=== PATIENT | male | born 1945 | race Caucasian/White ===

== ENCOUNTER → 2017-07-23 | Outpatient (CLI) | payer OTHER ==
[2017-07-23 21:42] LABS: BLOOD UREA NITROGEN 17 MG/DL (7-18); CREATININE FOR GFR 1.12 MG/DL (0.70-1.30); GLOMERULAR FILTRATION RATE > 60.0 (>42)
== END ==
LOC: M WUC 16:41
PROVIDERS: ATTEND Physician Assistant
DX: M51.36 Other intervertebral disc degeneration, lumbar region (principal)

== ENCOUNTER → 2018-07-23 | Outpatient (REF) | payer OTHER ==
[2018-07-23 16:33] LABS: CREATININE FOR GFR 1.12 MG/DL (0.70-1.30); GLOMERULAR FILTRATION RATE > 60.0 (>42)
[2018-07-23 16:33] LABS: BLOOD UREA NITROGEN 13 MG/DL (7-18)
== END ==
LOC: M LABDRAW1 11:29
DX: M17.11 Unilateral primary osteoarthritis, right knee (principal)

== ENCOUNTER 2019-03-20 19:38 | Emergency (ER) | payer MEDICARE, OTHER ==
[~2019-03-20] VITALS: Ht 182.9 cm; Wt 95.2 kg
[2019-03-20] MEDS ORDERED: ASPIRIN 81 MG CHEW TABLET ONE (19:39)
[2019-03-20] MEDS ORDERED: CLOPIDOGREL 300 MG TAB (PLAVIX) ONE (19:39)
[2019-03-20] MEDS ORDERED: HEPARIN 25,000 UNITS/250 ML D5W BAG (100 UNITS/ML) ONE (19:39)
[2019-03-20] MEDS ORDERED: NITROGLYCERIN 0.4 MG SUBL TABLET ONE (19:39)
[2019-03-20] MEDS ORDERED: TENECTEPLASE 50 MG KIT (TNKase)(J3101) ONE (19:39)
[2019-03-20] MEDS ORDERED: HEPARIN SOD (PORCINE) 5000 UNITS/ML VIAL ONE (19:39)
[2019-03-20] MEDS ORDERED: IBUP-1022 (19:53)
[2019-03-20 20:13] LABS: BASO # 0.1 10^3/uL (0.0-0.2); BASO % 0.2 % (0.0-1.0); EOS % 0.1 % (0.0-3.0); HEMATOCRIT 49.4 % (42.0-52.0); LYMPH # 1.4 10^3/uL (1.5-4.5); MEAN CORPUSCULAR HEMOGLOBIN 29.8 pg (27.0-33.0); MEAN CORPUSCULAR HGB CONC 34.4 g/dl (32.0-36.5); MEAN CORPUSCULAR VOLUME 86.5 fl (80.0-96.0); MONO # 1.5 10^3/uL (0.0-0.8); MONO % 5.6 % (0.0-5.0); NEUTROPHILS # 24.3 10^3/uL (1.8-7.7); NEUTROPHILS % 88.2 % (36.0-66.0); PLATELET COUNT, AUTOMATED 423 10^3/uL (150-450); RED BLOOD COUNT 5.71 10^6/uL (4.30-6.10); WHITE BLOOD COUNT 27.6 10^3/uL (4.0-10.0)
[2019-03-20] MEDS ORDERED: TENECTEPLASE 50 MG KIT (TNKase)(J3101) IV ONE (20:15)
[2019-03-20] MEDS: NITROGLYCERIN 0.4 MG SUBL TABLET SL PRN ×3 (20:15→20:39)
[2019-03-20] MEDS ORDERED: ASPIRIN 81 MG CHEW TABLET PO ONE (20:15)
[2019-03-20] MEDS ORDERED: HEPARIN DRIP 25,000 UNITS in APPROPRIATE DILUENT 1 EA IV SCH (20:18)
[2019-03-20 20:24] LABS: INR 1.2; PROTHROMBIN TIME 15.4 SECONDS (12.1-14.4)
[2019-03-20 20:25] LABS: PARTIAL THROMBOPLASTIN TIME 26.8 SECONDS (25.4-37.6)
[2019-03-20] MEDS ORDERED: CLOPIDOGREL 300 MG TAB (PLAVIX) PO ONE (20:30)
[2019-03-20] MEDS ORDERED: AZITHROMYCIN INJ 500 MG, VIAL MATE ADAPTER 1 EACH in D5W 250 ML IV ONE (20:30)
[2019-03-20] MEDS ORDERED: cefTRIAXone SOD 1 GM in D5W MINI-BAG PLUS 50 ML IV ONE (20:30)
[2019-03-20] MEDS ORDERED: HEPARIN SOD (PORCINE) 5000 UNITS/ML VIAL IV ONE (20:30)
[2019-03-20 20:39] VITALS: BP 136/81
[2019-03-20] MEDS ORDERED: AZITHROMYCIN 250 MG TAB PO ONE (20:45)
[2019-03-20] MEDS ORDERED: LIDOCAINE 1% SDV 5 ML VIAL DILUENT ONE (20:45)
[2019-03-20] MEDS ORDERED: cefTRIAXone SOD 1 GM VIAL (J0696) IM ONE (20:45)
[2019-03-20 20:55] LABS: ALBUMIN 3.2 GM/DL (3.2-5.2); BILIRUBIN,DIRECT 1.5 MG/DL (0.0-0.2); BILIRUBIN,TOTAL 2.9 MG/DL (0.2-1.0); CALCIUM LEVEL 8.9 MG/DL (8.8-10.2); CREATININE FOR GFR 1.78 MG/DL (0.70-1.30); FREE T4 1.7 NG/DL (0.76-1.46); GLOMERULAR FILTRATION RATE 40.2 (>42); MB/CK RELATIVE INDEX 1.78 (< OR =4); POTASSIUM SERUM 5.1 MEQ/L (3.5-5.1); THYROID STIMULATING HORMONE 2.34 uIU/ML (0.358-3.740); TROPONIN I 7.99 NG/ML (< 0.10)
--- NOTE | 2019-03-20 20:57 | ECGEPIP ---
[facility] - ED Test Date: 2019-03-20 Pat Name: GORDON BAILEY Department: Room: - Gender: Male Material Expeditor: tamiko : 1945 Requested By: JULIO Yeager Order Number: [id number] Reading MD: Angelia Estrada Measurements Intervals [place] Rate: 120 P: 33 VT: 96 QRS: 136 QRSD: 137 T: QT: 324 QTc: 460 Interpretive Statements SINUS TACHYCARDIA WITH SHORT [place] INTERVAL RIGHT BUNDLE BRANCH BLOCK LEFT POSTERIOR FASCICULAR BLOCK ST ELEVATION, CONSIDER INFERIOR INJURY, CLINICAL CORRELATION, NO PRIOR FOR COMPARISON Electronically Signed on 03-20-2019 20:57:22 EDT by Angelia Estrada
--- NOTE | 2019-03-20 20:59 | ECGEPIP ---
[facility] - ED Test Date: 2019-03-20 Pat Name: GORDON BAILEY Department: Room: - Gender: Male Cook Night: tamiko : 1945 Requested By: JULIO Yeager Order Number: [id number] Reading MD: Angelia Estrada Measurements Intervals [place] Rate: 117 P: 36 FL: 100 QRS: 149 QRSD: 129 T: 29 QT: 333 QTc: 466 Interpretive Statements SINUS TACHYCARDIA WITH SHORT [place] INTERVAL POSSIBLE LEFT ATRIAL ENLARGEMENT RIGHT BUNDLE BRANCH BLOCK LEFT POSTERIOR FASCICULAR BLOCK ST ELEVATION, CONSIDER INFERIOR INJURY, CLINICAL CORRELATION SIMILAR 03/20/19 Electronically Signed on 03-20-2019 20:58:38 EDT by Angelia Estrada
--- NOTE | 2019-03-20 21:02 | REP ---
Clinical: Acute chest pain. Technique: Two AP views of the chest. Findings: Cardiomegaly is appreciated diffuse chronic interstitial changes are noted. Right lower lobe infiltrate compatible with acute pneumonia is identified. Pulmonary vascular congestion cannot be excluded. No obvious effusion. No pneumothorax. Skeletal structures intact. Impression: Cardiomegaly and chronic changes. Superimposed right lower lobe infiltrate. Cannot exclude pulmonary vascular congestion and interstitial edema. Electronically Signed by Delio Rey MD 03/20/2019 08:53 P
[2019-03-20] MEDS ORDERED: NS 1,000 ML IV ONE (21:30)
--- NOTE | 2019-03-20 21:31 | ED PDOC ---
Post-Departure Follow-Up In ambulance [facility] patient became hypotensive. Moved back to ED room. Bolus init iated. BP 130/85. [facility] called to transport patient. JULIO BRADY MD March 20, 2019 21:31
[2019-03-20 21:40] VITALS: BP 134/88
--- NOTE | 2019-03-21 07:30 | ECGEPIP ---
[facility] - ED Test Date: 2019-03-20 Pat Name: GORDON BAILEY Department: Room: - Gender: Male Air Conditioning Technician: : 1945 Requested By: JULIO Yeager Order Number: [id number] Reading MD: Angelia Estrada Measurements Intervals [place] Rate: 117 P: 33 [place]: 96 QRS: 144 QRSD: 136 T: QT: 342 QTc: 477 Interpretive Statements SINUS TACHYCARDIA WITH SHORT [place] INTERVAL RIGHT BUNDLE BRANCH BLOCK LEFT POSTERIOR FASCICULAR BLOCK ST ELEVATION, CONSIDER INFERIOR INJURY, CLINICAL CORRELATION SIMILAR 20:02 Electronically Signed on 03-21-2019 7:30:09 EDT by Angelia Estrada
== END 2019-03-20 21:51 | disposition short-term general hospital (02) ==
LOC: M ED 19:38
DX: I21.19 ST elevation (STEMI) myocardial infarction involving other coronary artery of inferior wall (principal); J18.9 Pneumonia, unspecified organism; R06.02 Shortness of breath; M54.9 Dorsalgia, unspecified; F17.200 Nicotine dependence, unspecified, uncomplicated; Z79.1 Long term (current) use of non-steroidal anti-inflammatories (NSAID)
CPT/HCPCS: 71045; 80048; 80076; 82550; 82553; 83690; 84439; 84443; 84484; 85025; 85610; 85730; 87040; 93005; 93041; 94760; 96361; 96365; 96372; 96375; 99285; J0696; J3101